=== PATIENT | female | born 1990 | race Caucasian/White ===

== ENCOUNTER 2018-11-05 07:59 | Inpatient (IN) ==
[2018-11-05] MEDS ORDERED: NS 500 ML IV ONE (08:24)
[2018-11-05] MEDS ORDERED: ZOFRAN IV ONE (08:25)
[2018-11-05] MEDS ORDERED: MORPHINE IV ONE (08:25)
--- NOTE | 2018-11-05 08:38 | PROVIDER DOCUMENTATION ---
HPI-Abdominal Pain/GI Problem - General Chief Complaint: Abdominal Pain Stated Complaint: ABD PAIN Time Seen by Provider: 11/05/18 08:11 Source: patient Allergies/Adverse Reactions: Patient Allergies Allergy/AdvReac Type Severity Reaction Status Date / Time No Known Allergies Allergy Verified 11/05/18 08:07 Home Medications: Home Medication List Medication Instructions Recorded Confirmed Last Taken Type NK [No Home Medications] 11/05/18 11/05/18 Unknown History - History of Present Illness-ABD Nature of Presenting Problems: Patient is a RLQ pain since yesterday associated with nausea that became worse today. She denies fever or any other symptoms and is non-toxic in appearance. Abdominal Pain Onset Location: reports: RLQ Pain Radiation: reports: no radiation Severity in ED: reports: moderate Timing: reports: still present Activities at Onset: reports: none Exposure to sick contacts?: No Modifying Factors: improves with: nothing Last BM: this morning Dark Stools Present?: reports: none noticed Rectal Bleeding: reports: none Rectal Pain: reports: none Similar Symptoms Previously?: No Recently seen or treated by another doctor?: No Review of Systems - Adult - REVIEW OF SYSTEMS - ADULT Constitutional: denies: chills, fever Eyes: reports: no symptoms reported Ears, Nose, Mouth & Throat: reports: no symptoms reported Cardiovascular: reports: no symptoms reported Respiratory: reports: no symptoms reported Gastrointestinal: reports: abdominal pain, nausea. denies: diarrhea, vomiting Genitourinary: denies: dysuria, flank pain, hematuria Musculoskeletal: reports: no symptoms reported Integumentary: reports: no symptoms reported Neurological: reports: no symptoms reported Psychiatric: reports: no symptoms reported Endocrine: reports: no symptoms reported Hematologic/Lymphatic: reports: no symptoms reported Allergic/Immunologic: reports: no symptoms reported All Other Systems: Reviewed and Negative Past History - Adult - PAST MEDICAL HISTORY-ADULT Review of Records: reports: Old Records Reviewed, Nursing Assessment Review, Medications Reviewed, Social history reviewed & non-contributory. Major Childhood Illnesses: reports: denies history Cardiovascular: reports: denies history Respiratory: reports: denies history Gastrointestinal: reports: denies history Obstetrical/Gynecological: reports: denies history Genitourinary: reports: denies history Musculoskeletal: reports: denies history Neurological: reports: denies history Endocrine/Immune: reports: denies history Other Conditions: reports: denies history - PRIOR SURGERIES/PROCEDURES Surgical/Procedure History: reports: tonsillectomy, joint replacement - IMMUNIZATION STATUS Childhood Immunizations: See Nurse Assessment Flu Vaccine: See Nurse Assessment - FAMILY HISTORY Family History: reviewed, not pertinent - SOCIAL HISTORY Smoking: cigarettes, less than 1 pack/day Physical Exam-General - PHYSICAL EXAM-ADULT Initial Vital Signs Reviewed: Yes - CONSTITUTIONAL General Appearance: alert, no apparent distress. negative: lethargic, slow to respond - EYES Eyes: pink conjunctivae - HEAD, EARS, NOSE, MOUTH & THROAT HENMT: normocephalic/atraumatic, moist mucous membranes - NECK Neck: non-tender, full range of motion, supple, normal inspection - RESPIRATORY Respiratory: chest non-tender, lungs clear, normal breath sounds, no pleuratic chest pain, no respiratory distress, no accessory muscle use - CARDIOVASCULAR Cardiovascular: regular rate, rhythm, no gallop, no murmur - GASTROINTESTINAL (ABDOMEN) Abdominal Exam: normal bowel sounds, soft, no organomegaly, tenderness (RLQ), McBurney's point tenderness. negative: distended, guarding, rigid, hernia, mass , hepatomegaly, spleenomegaly - LYMPHATIC Lymphatic: no adenopathy - MUSCULOSKELETAL Back Exam: normal inspection Extremity: normal range of motion, non-tender, normal gait, normal inspection - SKIN Integumentary: normal color, normal turgor, warm/dry. negative: cyanosis, diaphoresis, jaundice, mottled, pallor - NEUROLOGIC Neurologic: grossly normal, no motor/sensory deficits - PSYCHIATRIC Psych/Mental Status: normal mood/affect, normal thought content, normal thought process, oriented x 3 Progress - PLAN OF CARE/RESULTS Progress/Plan/Lab Results: Vital Signs - 8 hr 11/05/18 08:04 Temperature 98.4 F Pulse Rate 82 Respiratory Rate 18 Blood Pressure 114/62 O2 Sat by Pulse Oximetry 99 Bedside Urine ED: Urine Bedside Start: 11/05/18 08:18 Freq: ORDERED Status: Active Protocol: Activity Type Activity Date Activity User E-Sign Co-Sign Detail Recorded Client Recorded Date Recorded By Document 11/05/18 08:19 [id number] 11/05/18 08:19 [id number] 11/05/18 08:19 Point of Care [Bedside Point of Care] -Lot # [id number] - Results Negative -Control Line Visible? Yes Orders Category Date Time Status UA [ED: Urine Bedside] ORDERED Care 11/05/18 08:18 Active CBC WITH DIFF [HEME] Stat Lab 11/05/18 08:24 Ordered COMPREHENSIVE METABOLIC PANEL [CHEM] Stat Lab 11/05/18 08:[address] W/POSS RFLX CULT [URINALYSIS] Stat Lab 11/05/18 08:18 Ordered 0.9% Sodium Chloride Inj [Ns] 500 ml Med 11/05/18 08:24 Active IV 999 mls/hr Morphine Med 11/05/18 08:25 Discontinued 4 mg IV NOW ONE Ondansetron [Zofran] Med 11/05/18 08:25 Discontinued 4 mg IV NOW ONE Discussed plan of care with pt who is in agreement. Paged Dr. Castañeda and OR nurse called back and took pt report- states she will give to Dr. Castañeda he is in surgery right now. Pt aware of CT result and that surgeon has been paged. Is in agreement with current plan. Dr. Castañeda saw and examined pt in the ED and agrees that appendicitis is likely possibility. States to transfer to [facility], to admit to him, and order Zosyn. Pt in agreement with this plan. Result Diagrams: 11/05/18 08:40 11/05/18 08:40 - CT/MRI 1 CT Study: Abdomen, Pelvis ([facility] [address] , [address], [place] [address] Department of Imaging Patient: MATT BAZAN Date : 11/05/18#: [id number] : 1990ADM Status: REG [facility]#: [id number] Age/Sex: 28/FRoom/Bed: Loc: P.ED Ordering Physician: Fransico Gomez Family Physician: None,PCP Reason for Procedure: RLQ pain Signed EXAM: CT ABD/PELVIS W/IV CONT ONLY HISTORY: RLQ pain TECHNIQUE: CT abdomen and pelvis with intravenous contrast COMPARISON: None. FINDINGS: No calcified gallstones or adjacent inflammation. Normal spleen, liver, pancreas, adrenal glands, and kidneys. No hydronephrosis. Normal aorta. No bowel obstruction. The appendix is not thickened or distended. Questionable minimal adjacent inflammation. No free air. No abscess. The urinary bladder is moderately distended and is normal. Normal uterus and ovaries. IMPRESSION: Questionable mild appendicitis. This exam was performed using automated exposure control, adjustment of mA or kV according to patient size, and/or use of iterative reconstruction technique. Electronically signed by Rishi Wilson 11/05/2018 9:43 AM 11/05/18 0943 Interpreting Physician: Rishi Wilson MD Dictated Date/Time: 11/05/18 0940 cc: Fransico Gomez; None,PCP ) - CONSULTS/PCP/HOSPITALIST Notification #1 *Consult/PCP/Hospitalist*: Dr. Castañeda Time Discussed: 11:40 Reason/Comments: appendicitis Consult Disposition: Will see in ED Departure - Departure Date of Disposition Decision: 11/05/18 Time of Disposition Decision: 12:03 DIAGNOSIS: Acute appendicitis Qualifiers: Acute appendicitis type: unspecified acute appendicitis type Qualified Code(s) : K35.80 - Unspecified acute appendicitis Disposition: ADMITTED INPATIENT 09 Certified Medical Emergency: Emergent Condition: Stable Referrals and Follow-Ups: None,PCP [Primary Care Provider] - - Critical Care Note This patient required my direct & personal management of CC.: No Attestation - Physician/ RADHA Attestation Patient care was provided by Advanced Practice Provider:: Yes Advanced Practice Provider:: Fransico Gomez Advanced Practice Provider documentation review:: The Mid-level provider documentation, treatment plan and medical decision making was reviewed by the physician who agrees with all treatment and medical decision making by the P. The physician spent face to face time with patient:: No Advanced Practice Provider documentation review:: Supervising physician onsite and consulted in the evaluation and care of this patient. The physician did not have a face to face encounter with the patient.
[2018-11-05 08:55] LABS: BASO# 0.02 X1000 (0.0-0.2); BASO% 0.2 % (0.0-0.8); EOS# 0.05 X1000 (0.0-0.7); EOS% 0.6 % (0.0-10.0); HEMATOCRIT 38.7 % (37.0-47.0); HEMOGLOBIN 12.9 g/dL (12.0-16.0); IMM GRAN# 0.01 X1000 (0.0-0.04); IMM GRAN% 0.1 % (0.0-0.5); LYMPH# 2.14 X1000 (1.2-3.4); MCH 29.3 PG (27-31); MCHC 33.3 g/dL (33-37); MCV 87.8 FL (81-99); MONO# 0.69 X1000 (0.11-0.59); MONO% 8.1 % (1.7-9.3); MPV 11.1 FL (7.4-10.4); NEUT# 5.66 X1000 (1.4-6.5); PLT 247 X1000 (130-400); RBC 4.41 XMIL (4.2-5.4); RDW 12.9 % (11.5-14.5); WBC 8.57 X1000 (4.8-10.8)
[2018-11-05 09:01] LABS: CLARITY SLIGHTLY CLOUDY (CLEAR); COLOR YELLOW; URINE BACTERIA 2+ /HFP; URINE EPITHELIAL CELLS >10 /HPF (<10); URINE SOURCE CLEAN CATCH
[2018-11-05 09:02] LABS: BILIRUBIN URINE NEGATIVE (NEGATIVE); BLOOD URINE NEGATIVE (NEGATIVE); GLUCOSE URINE NEGATIVE (NEGATIVE); KETONE URINE NEGATIVE (NEGATIVE); LEUKOCYTES URINE 2+ (NEGATIVE); NITRITE URINE NEGATIVE (NEGATIVE); PH URINE 6.5; PROTEIN URINE NEGATIVE (NEGATIVE); SP GRAVITY URINE 1.015; UROBILINOGEN URINE 1 mg/dL
[2018-11-05 09:10] LABS: AGAP 10; ALBUMIN 3.9 g/dL (3.5-5.0); ALKALINE PHOSPHATASE 78 U/L (32-104); BUN 5 mg/dL (8-22); CALCIUM 8.8 mg/dL (8.8-10.2); CHLORIDE 104 mmol/L (98-107); COSMO 272; CREATININE 0.7 mg/dL (0.5-0.9); ESTIMATED GFR > 60; GLUCOSE 80 mg/dL (70-104); GOT 18 U/L (10-30); GPT 8 U/L (10-36); POTASSIUM 4.3 mmol/L (3.5-5.1); SODIUM 138 mmol/L (136-145); TCO2 24 mmol/L (25-35); TOTAL PROTEIN 7.8 g/dL (6.3-8.3)
--- NOTE | 2018-11-05 09:45 | Diag Imaging Result Doc PS360 ---
EXAM: CT ABD/PELVIS W/IV CONT ONLY HISTORY: RLQ pain TECHNIQUE: CT abdomen and pelvis with intravenous contrast COMPARISON: None. FINDINGS: No calcified gallstones or adjacent inflammation. Normal spleen, liver, pancreas, adrenal glands, and kidneys. No hydronephrosis. Normal aorta. No bowel obstruction. The appendix is not thickened or distended. Questionable minimal adjacent inflammation. No free air. No abscess. The urinary bladder is moderately distended and is normal. Normal uterus and ovaries. IMPRESSION: Questionable mild appendicitis. This exam was performed using automated exposure control, adjustment of mA or kV according to patient size, and/or use of iterative reconstruction technique. Electronically signed by Rishi Wilson 11/05/2018 9:43 AM
[2018-11-05] MEDS ORDERED: DILAUDID IV ONE (09:57)
[2018-11-05] MEDS ORDERED: NS 1,000 ML IV ONE (11:56)
[2018-11-05] MEDS ORDERED: ZOSYN 3.375 GM in NS 50 ML IV ONE (11:56)
[2018-11-05] MEDS: ZOFRAN IV PRN ×2 (14:23→21:32)
[2018-11-05] MEDS: MORPHINE IV PRN ×2 (14:23→21:32)
[2018-11-05] MEDS ORDERED: ZEMURON ONE (17:04)
[2018-11-05] MEDS ORDERED: ROBINUL ONE ×2 (17:04→18:14)
[2018-11-05] MEDS ORDERED: QUELICIN (DOSE) ONE (17:04)
[2018-11-05] MEDS ORDERED: DIPRIVAN 1% ONE (17:04)
[2018-11-05] MEDS ORDERED: XYLOCAINE-MPF 2% ONE (17:04)
[2018-11-05] MEDS ORDERED: ZOSYN 3.375 GM in NS 50 ML IV SCH (18:00)
[2018-11-05] MEDS ORDERED: LR 1,000 ML ONE (18:04)
[2018-11-05] MEDS ORDERED: SENSORCAINE-MPF 0.5%/EPI 1:200,000 ONE (18:04)
[2018-11-05] MEDS ORDERED: ZOFRAN ONE (18:14)
[2018-11-05] MEDS ORDERED: NEOSTIGMINE ONE (18:14)
[2018-11-05] MEDS ORDERED: DECADRON ONE (18:14)
[2018-11-05] MEDS ORDERED: FENTANYL ONE (18:15)
[2018-11-05] MEDS: DILAUDID ONE ×4 (19:08→19:24)
[2018-11-05] MEDS ORDERED: LR 1,000 ML IV SCH (19:57)
[2018-11-05] MEDS ORDERED: PERIDEX MT SCH (21:00)
[2018-11-06] MEDS: NORCO-7.5 PO PRN ×2 (00:16→05:24)
[2018-11-06] MEDS: MORPHINE IV PRN ×2 (01:50→06:18)
--- NOTE | 2018-11-06 04:36 | HISTORY AND PHYSICAL ---
DATE: 11/05/2018 HISTORY OF PRESENT ILLNESS: This is a 28-year-old female, who presents with 24-hour history of right lower quadrant abdominal pain with nausea. She states, prior to yesterday, she was in her usual state of health. She developed pain that has persisted and become more severe and localized in the right lower quadrant. She reports normal bowel movements. No diarrhea. No hematochezia. No vomiting, but she is very nauseated with decreased appetite today. No fevers. No sick contacts. No abnormal food usage. MEDICAL HISTORY: Negative. SURGICAL HISTORY: She has had tubal ligation and tonsillectomy. SOCIAL HISTORY: No tobacco, alcohol, or drugs. She works at [employer]. FAMILY HISTORY: Reviewed and noncontributory. REVIEW OF SYSTEMS: Ten point negative. PHYSICAL EXAM: Vital signs: Temp is 97.9, pulse 84, blood pressure 121/66, oxygen saturation 99% on room air. General: She is alert, in no acute distress. HEENT: There is no scleral icterus. No cervical mass. Cardiovascular: Normal rate. Pulmonary: No increased work of breathing. Abdomen: Soft. There is tenderness focally in the right lower quadrant, but no obvious peritonitis. Integument: Warm and dry without jaundice. Psychiatric: Appropriate affect. Neurologic: No gross deficits. Lymphatic: No cervical, axillary, or inguinal adenopathy. Peripheral vascular: No lower extremity edema. DIAGNOSTIC DATA: White count is 8, hematocrit is 38. Creatinine 0.7. LFTs are normal. Urinalysis: No nitrates. He does have some white blood cells. CT scan shows changes of questionable appendicitis. There is air within the appendix, but there is some areas of inflammation. No obvious adnexal lesions. test was negative in the emergency department. ASSESSMENT AND PLAN: A 28-year-old female with most likely early acute appendicitis, possible that this is more of a gynecologic or urologic issue. However, given the findings on CT scan and her exam, I have recommended appendectomy. We will start her on Zosyn. She is nothing by mouth. We will go the operating room for laparoscopic appendectomy. We discussed risk of bleeding, infection, intra-abdominal abscess, anticipated hospital course, possibility that this is not appendicitis at which point, she would have appendectomy for a normal appendix and would need further investigation. She understands all this and consents. cc: Esau Castañeda MD
[2018-11-06] MEDS: ZOFRAN IV PRN (06:17)
--- NOTE | 2018-11-06 06:47 | OPERATIVE NOTE ---
PROCEDURE DATE: 11/05/2018 PREOPERATIVE DIAGNOSIS: Acute appendicitis. POSTOPERATIVE DIAGNOSIS: Acute appendicitis. PROCEDURE PERFORMED: Laparoscopic appendectomy. ESTIMATED BLOOD LOSS: 10 mL. SPECIMENS: Appendix. ANESTHESIA: General. INDICATIONS: A 28-year-old female with nausea and 24 hours of right lower quadrant abdominal pain. She had a normal appendix on CT scan. FINDINGS: Chronically inflamed dilated appendix with no evidence of perforation. Adnexal structures were normal. Uterus was normal. Otherwise, no acute intra-abdominal findings other than appendicitis. OPERATIVE NOTE: Risks, benefits and alternatives discussed with the patient and she consented to the procedure. She was seen preoperatively. Surgical site was confirmed, she was taken to the operating room and placed in supine position. General anesthesia was induced without complication. All bony prominences were properly padded. Herrmann catheter was placed. Abdomen was prepped with chlorhexidine solution and draped in the usual fashion. After time-out, a curvilinear infraumbilical incision was made and carried down to the level of the fascia. The fascia was incised and was entered in open controlled fashion after dividing the peritoneum. A 12 mm Jan trocar was placed under direct visualization. The abdomen was insufflated with 15 mmHg. We then placed two additional trocars 5 mm one at the suprapubic location above the reflection of the bladder, one in the left lower quadrant, and one lateral to the inferior epigastric vessels. We identified the appendix easily. There were some adhesions to the cecum. We did inspect to ensure there was no injury to underlying structures, and she was in Trendelenburg position left side down. We created a window at the base after taking down some adhesions with electrocautery at the base of the appendix. Using a 30 mm gold load stapler, we divided the base of the appendix completely and removed it protecting the cecum and the terminal ileum. A second fire of 45 mm gold load stapler was used to divide the mesoappendix. She tolerated all of this well. Hemostasis was noted. We placed the appendix in an EndoCatch bag. We confirmed hemostasis, and removed the remaining trocars under direct visualization and noted hemostasis. Abdomen was deflated. The appendix was brought out through the umbilical incision. Fascia was closed with interrupted 0 Vicryl sutures. Skin was closed with 4-0 Monocryl in subcuticular fashion. Dermabond was applied. Counts were correct x2. She has woken, and transferred to the recovery room. I spoke to family. cc: Esau Castañeda MD
[2018-11-06 07:31] VITALS: BP 104/65
--- NOTE | 2018-11-06 11:04 | DISCHARGE SUMMARY ---
ADMISSION DATE: 11/05/2018 DISCHARGE DATE: 11/06/2018 PREOPERATIVE DIAGNOSIS: Acute appendicitis. POSTOPERATIVE DIAGNOSIS: Acute appendicitis. PROCEDURE PERFORMED: Laparoscopic appendectomy. HISTORY OF PRESENT ILLNESS: This is a 28-year-old female with a 24-hour history of abdominal pain. She presented to the ER where CT scan showed changes concerning for acute appendicitis. Appendectomy was indicated. HOSPITAL COURSE: She was seen in the ER and consented to above procedure and was cleared by Anesthesia. For details please see dictated operative note. She was taken to the operating room on the day of her admission. Postoperatively she did well. She was admitted. Her diet was advanced and she tolerated this well and she was felt safe for discharge home. Her incisions are intact. Her abdomen is soft. She had no fevers, no tachycardia. She is able to void. DISPOSITION: Home to self-care. DISCHARGE MEDICATIONS: A prescription for [place], Colace, and Zofran. DISCHARGE DIET: GI soft as tolerated. Activity was given in written and verbal form. Return to clinic in 1 week. cc: Esau Castañeda MD
== END 2018-11-06 08:50 | disposition home or self-care (01) | DRG 343 ==
LOC: P.ED 07:59 → 4N 13:10
PROVIDERS: ADMIT Surgery; ATTEND Surgery
CPT/HCPCS: 74177; 80053; 81001; 81025; 85025; 87088; 88304; 94761; 94799; 96361; 96365; 96375; 99285; A9270; J0330; J1100; J1170; J2270; J2405; J2543; J3010; J7030; J7040; J7120; Q9967